=== PATIENT | female | born 2005 | race Two or more races ===

== ENCOUNTER 2024-02-29 20:08 | Emergency (ER) | payer OTHER ==
[~2024-02-29] VITALS: Ht 165.1 cm; Wt 125.1 kg
[2024-02-29] MEDS ORDERED: MUPI2OIN2 EX (22:40)
[2024-02-29] MEDS ORDERED: AUG875T PO (22:40)
[2024-02-29] MEDS: AMOXICILLIN/CLAVUL 875 MG TAB PO ONE (22:47)
[2024-02-29] MEDS: NEOMYCIN-BACITRACIN-POLYM UNITDOSE PKG TOP OINT TOP ONE (22:48)
[2024-02-29] MEDS: TETANUS-DIPTH-ACEL PERTUSSIS 0.5ML SYR Tdap IM ONE (22:48)
[2024-02-29 22:53] VITALS: BP 113/74; PULSE 85; RESP 19; TEMP 98.7; O2SAT 98
== END 2024-02-29 22:55 | disposition home or self-care (01) ==
LOC: ER 20:08
DX: S81.832A Puncture wound without foreign body, left lower leg, initial encounter (principal); S81.852A Open bite, left lower leg, initial encounter; W55.01XA Bitten by cat, initial encounter; Y93.89 Activity, other specified; Y92.89 Other specified places as the place of occurrence of the external cause; Y99.8 Other external cause status
CPT/HCPCS: 90471; 90715